=== PATIENT | female | born 1965 | race Caucasian/White ===

== ENCOUNTER 2018-12-04 00:15 | Emergency (ER) | payer OTHER ==
[~2018-12-04] VITALS: Ht 167.6 cm; Wt 73.0 kg
[2018-12-04] MEDS ORDERED: METFORMIN HCL500 MG PO (00:27)
[2018-12-04] MEDS ORDERED: ONDANSETRON HCL4 M2 PO (00:27)
[2018-12-04] MEDS ORDERED: PROPRANOLOL 1010 MG PO (00:28)
[2018-12-04] MEDS ORDERED: OMEPRAZOLE40 MG PO (00:28)
[2018-12-04] MEDS ORDERED: DOXEPIN 10 MG C10 MG PO (00:29)
[2018-12-04] MEDS ORDERED: HYDROXYZINE HCL25 M1 PO (00:29)
[2018-12-04] MEDS ORDERED: NEURONTIN 300300 M1 PO (00:30)
[2018-12-04] MEDS ORDERED: KEPPRA1000 MG PO (00:30)
[2018-12-04] MEDS ORDERED: BENTYL 10 MG CA10 M1 PO (00:30)
[2018-12-04] MEDS ORDERED: PAXIL10 MG PO (00:31)
[2018-12-04] MEDS ORDERED: VIMPAT200 MG PO (00:31)
[2018-12-04] MEDS ORDERED: LIPITOR 20 MG T20 M1 PO (00:31)
[2018-12-04] MEDS ORDERED: VALIUM5 MG PO (00:33)
[2018-12-04 00:36] LABS: ABSOLUTE EOSINOPHILS 0.2 thou/uL (0.0-0.7); ABSOLUTE LYMPHOCYTES 2.4 thou/uL (0.8-5.3); ABSOLUTE MONOCYTES 0.6 thou/uL (0.0-1.2); ABSOLUTE NEUTROPHILS 2.7 thou/uL (1.6-8.1); BASOPHILS 0.8 %; HEMATOCRIT 42.9 % (37.0-47.0); HEMOGLOBIN 14.5 gm/dL (12.0-15.0); LYMPHOCYTES 41.1 %; MCH 32.4 pg (26.0-34.0); MCHC 33.8 g/dL (28.0-37.0); MCV 95.9 fL (80.0-100.0); MONOCYTES 9.5 %; MPV 7.7 fl. (7.2-11.1); NUCLEATED RBCS 0 /100WBC; PLATELET COUNT* 180 thou/uL (150-400); POLYS 45.6 %; RBC 4.47 mil/uL (4.20-5.00); RDW-CV 14.2 % (10.5-14.5); WBC 5.9 thou/uL (4.0-11.0)
[2018-12-04 00:45] LABS: ANION GAP 9 mmol/L (7-16); BUN 5 mg/dL (7-18); CALCIUM 8.8 mg/dL (8.5-10.1); CHLORIDE 105 mmol/L (98-107); CO2 28 mmol/L (21-32); CREATININE 0.9 mg/dL (0.6-1.3); GLUCOSE 118 mg/dL (70-99); SODIUM 142 mmol/L (136-145)
[2018-12-04 00:57] LABS: ALBUMIN 3.3 g/dL (3.4-5.0); ALKALINE PHOSPHATASE 86 U/L (46-116); LIPASE 145 U/L (73-393); SGOT 13 U/L (15-37); SGPT 23 U/L (30-65); TOTAL BILIRUBIN 0.3 mg/dL (<0.1-1.0); TOTAL PROTEIN 6.7 g/dL (6.4-8.2); TROPONIN-I LEVEL <0.06 ng/mL (<0.06)
[2018-12-04 02:18] VITALS: BP 128/70
--- NOTE | 2018-12-04 11:01 | EKG ---
[place] [address] ELECTROCARDIOGRAM REPORT Name: MANDIE PHILLIPS Room: [facility]#: [id number] Admission: 12/04/18 Attend Phys: Discharge: 12/04/18 Date of : 61 Report #: [id number] THIS REPORT FOR: //name// [facility] ED Test Date: 2018-12-04 Test Time: 00:43:26 Pat Name: MANDIE PHILLIPS Department: Room: Gender: F Certification And Selection Specialist: ND : 1965 Requested By: Sukhjinder Pearce Order Number: [id number] MD: Jaron Addison Measurements Intervals [place] Rate: 81 P: -17 UT: 158 QRS: -51 QRSD: 89 T: 52 QT: 395 QTc: 459 Interpretive Statements Sinus rhythm Inferior infarct, old No previous ECG available for comparison Electronically Signed On 12-04-2018 11:01:12 CDT by Jaron Addison [email or web address] <ELECTRONICALLY SIGNED> By: Jaron Addison MD, [facility] 12/04/18 1101 0043 0043 Jaron Addison MD, FACC /EPI
== END 2018-12-04 02:18 | disposition home or self-care (01) ==
LOC: M.ERS 00:15
PROVIDERS: Family Medicine
DX: R10.9 Unspecified abdominal pain (principal); R11.2 Nausea with vomiting, unspecified; Z88.6 Allergy status to analgesic agent; Z88.5 Allergy status to narcotic agent; Z88.0 Allergy status to penicillin